=== PATIENT | male | born 1960 | race Caucasian/White ===

== ENCOUNTER 2016-10-28 17:52 | Emergency (ER) | payer BC ==
[~2016-10-28] VITALS: Ht 172.7 cm; Wt 74.5 kg
[~2016-10-28 17:52] MED LIST: ASPEC81 PO; CYAN100020 PO; INSUINJ14 SC; INSUINJ4 SQ; LISI-461 PO; METF1TAB85 PO; MULTTAB58 PO; OMEP20CA9 PO; SIMV10TA5 PO
[2016-10-28 17:56] VITALS: TEMP 36.5; Ht 172.7 cm; Wt 74.5 kg
[2016-10-28] MEDS ORDERED: ACETAMINOPHEN 325 MG TAB PO STA (18:08)
[2016-10-28] MEDS ORDERED: ASPI81TA28 PO (18:14)
[2016-10-28] MEDS ORDERED: NVLGI/PEN SC (18:14)
[2016-10-28] MEDS ORDERED: INSDGIPEN SC (18:14)
--- NOTE | 2016-10-28 18:14 | EMERGENCY ROOM VISIT NOTE ---
History First contact with patient: 18:03 Chief Complaint: SHOULDER PAIN Stated Complaint: R SHOULDER PAIN History of Present Illness The patient is a 56 year old male who presents to the Emergency Room via private vehicle with complaints of "right shoulder pain". The patient states that around 3 PM this evening, he was at home, tripped and fell striking his right shoulder on the ground. He is here concerned because he thinks his right shoulder may be dislocated. He rates the pain as a 6/10. His tetanus is up-to- date. He denies any loss of consciousness, chest pain, shortness of breath. Review of Systems A complete 6-point Review of Systems was discussed with the patient, with pertinent positives and negatives listed in the History of Present Illness. All remaining Review of Systems questions can be considered negative unless otherwise specified. Past Medical/Surgical History Diabetes. Family History No pertinent. Social History Smoking Status: Never Smoker Social History: Patient lives locally. Current/Historical Medications Scheduled Aspirin (Aspirin Ec), 81 MG PO DAILY Insulin Aspart (Novolog Flexpen), UNITS SC DIRECTED Insulin Glargine (Lantus Solostar), 22 UNITS SC DAILY Lisinopril (Zestril), 10 MG PO DAILY Metformin Hcl (Metformin Hcl Er), 750 MG PO TIDM Multiple Vitamin (Multivitamin), 1 TAB PO DAILY Omeprazole (Prilosec), 20 MG PO BID Simvastatin (Zocor), 10 MG PO QPM Allergies Coded Allergies: No Known Allergies (Verified , ., 02/11/13) Physical Exam Vital Signs Date Time Temp Pulse Resp B/P (MAP) Pulse Ox O2 Delivery O2 Flow Rate FiO2 10/28/16 19:24 86 18 126/82 96 10/28/16 17:56 36.5 99 18 133/89 94 Room Air Physical Exam VITAL SIGNS - Vital signs and nursing notes were reviewed. Afebrile, blood pressure 133/89, non-tachycardic and is saturating well on room air at 94%. GENERAL -56-year-old male appearing his stated age who is in no acute distress. Communicates well with provider and answers questions appropriately. SKIN - Without rashes. There are a few abrasions noted to the posterior aspect of the right shoulder. HEAD - NC/AT. NECK -no C-spine tenderness. LUNGS - Chest wall symmetric without accessory muscle use, intercostals retractions, or central cyanosis. Normal vesicular breath sounds CTA B/L. No wheezes, rales, or rhonchi appreciated. CARDIAC - RRR with S1/S2. No murmur, rubs, or gallops appreciated. EXTREMITIES - No clubbing or peripheral cyanosis. No pretibial edema present. There is obvious anterior deformity of the right shoulder, with clavicular elevation and inferior humeral head displacement. +5/5 strength noted in UE/LE bilaterally. He is neurovascularly intact in this region. Medical Decision & Procedures ER Provider Diagnostic Interpretation: RIGHT SHOULDER MIN 2 VIEWS ROUTINE CLINICAL HISTORY: Fall, right shoulder dislocation Right pain. Trauma. COMPARISON: None. DISCUSSION: Grade 1/2 separation right acromioclavicular joint. Glenohumeral joint is unremarkable. No evidence for fracture. There is no evidence for soft tissue swelling. IMPRESSION: Grade 1/grade 2 separation right acromioclavicular joint The above report was generated using voice recognition software. It may contain grammatical, syntax or spelling errors. Electronically signed by: Tanvir Delgado M.D. 10/28/2016 6:38 PM Dictated Date/Time: 10/28/2016 6:37 PM Medications Administered Medications (Trade) Dose Ordered Sig/Esme Route Start Time Stop Time Status Last Admin Dose Admin Acetaminophen (Tylenol Tab) 650 mg NOW STAT PO 10/28/16 18:08 10/28/16 18:09 DC 10/28/16 18:16 650 MG ED Course Seen and evaluated in room D 9. Radiographs and Tylenol were ordered. Patient was seen by my attending. AC joint separation noted. Sling was applied. Referred to orthopedics, discharged home in good condition. Medical Decision Patient was seen and evaluated as above. After obtaining a thorough history and physical examination radiographs were obtained, and he was given Tylenol for pain. He indicated he was driving, therefore was not given anything stronger for pain. He had no pain at rest. Radiographs reveal before AC joint separation. Case was discussed with my attending, who also personally evaluated the patient. At this time he will be immobilized with an arm sling, and referred to orthopedics. He is certainly to return with any new/concerning symptoms. He was neurovascularly intact in this region. He was educated upon worrisome symptoms which return, had questions about future, and was discharged home in good condition. In the evaluation and treatment of this patient, the following differential diagnoses were considered: Shoulder Contusion, Shoulder Fracture, Shoulder Dislocation, Thoracic Outlet Syndrome, Adhesive Capsulitis, Rotator Cuff Tear, Proximal Clavicle Head Fracture, Apical Pneumonia, Pneumothorax, Hemothorax, or TB. Impression Primary Impression: Acromioclavicular joint separation, type 2 Departure Information Dispostion Home / Self-Care Condition GOOD Referrals No Doctor, Assigned (PCP) Marcos Romero MD Patient Instructions My [facility] Additional Instructions You have been treated in the Emergency Department for Shoulder Pain. For pain control, you can use the following [id number] medicines (if >12 yo): - Regular strength (325mg/tab) Tylenol (acetaminophen) 2 tabs every 4-6 hours as needed. Do not exceed 12 tablets in a 24 hour period. Avoid taking more than 3 grams (3000 mg) of Tylenol per day. This includes any other sources of acetaminophen you may take on a regular basis. If this is a recent injury (<24 hrs), ice can be applied to the area of pain for the first 3 days to help decrease pain and inflammation. You have been provided the number for an Orthopaedic Surgeon. You should call this number as soon as possible to establish a follow-up visit from today's Emergency Department visit. Keep the shoulder brace/sling in place until evaluated by Orthopedics. Continue to perform range of motion exercises several times per day to help prevent the development of a "frozen shoulder". Return to the Emergency Department if your current symptoms worsen despite treatment course outlined above, or if you develop any of the following symptoms : intractable pain despite aforementioned treatment course or new onset of numbness or tingling of the arm. Please return to the emergency department with any new/concerning symptoms.
--- NOTE | 2016-10-28 18:32 | EMERGENCY ROOM VISIT NOTE ---
ED Visit Note First contact with patient: 18:03 This Patient was discussed with the physician Director Government, Christopher Foote PA-C. The pertinent historical and physical exam findings were confirmed. I agree with the studies ordered and with the interpretations of these studies. I agree with the disposition and care plan.
--- NOTE | 2016-10-28 18:39 | DIAGNOSTIC IMAGING REPORT ---
RIGHT SHOULDER MIN 2 VIEWS ROUTINE CLINICAL HISTORY: Fall, right shoulder dislocation Right pain. Trauma. COMPARISON: None. DISCUSSION: Grade 1/2 separation right acromioclavicular joint. Glenohumeral joint is unremarkable. No evidence for fracture. There is no evidence for soft tissue swelling. IMPRESSION: Grade 1/grade 2 separation right acromioclavicular joint The above report was generated using voice recognition software. It may contain grammatical, syntax or spelling errors. Electronically signed by: Tanvir Delgado M.D. 10/28/2016 6:38 PM Dictated Date/Time: 10/28/2016 6:37 PM
[2016-10-28 19:24] VITALS: BP 126/82; PULSE 86; O2SAT 96
== END 2016-10-28 19:25 | disposition home or self-care (01) ==
LOC: C.EDB 17:54 → C.EDD 19:25
DX: S43.101A Unspecified dislocation of right acromioclavicular joint, initial encounter (principal); W01.0XXA Fall on same level from slipping, tripping and stumbling without subsequent striking against object, initial encounter; E11.9 Type 2 diabetes mellitus without complications; Z79.4 Long term (current) use of insulin; Z79.82 Long term (current) use of aspirin; Z79.899 Other long term (current) drug therapy

== ENCOUNTER → 2016-11-09 | Outpatient (CLI) | payer BC ==
[~2016-11-09] MED LIST changes: -ASPEC81 PO; +ASPI81TA28 PO; -CYAN100020 PO; +INSDGIPEN SC; -INSUINJ14 SC; -INSUINJ4 SQ; +NVLGI/PEN SC
--- NOTE | 2016-11-09 08:03 | DIAGNOSTIC IMAGING REPORT ---
ORBITS FOR MRI HISTORY: Pre-MRI pre-MRI screening. COMPARISON: None. FINDINGS: There are no radiopaque foreign bodies identified within the orbits. IMPRESSION: No radiopaque foreign bodies identified within the orbits. The above report was generated using voice recognition software. It may contain grammatical, syntax or spelling errors. Electronically signed by: Tanvir Delgado M.D. 11/09/2016 8:01 AM Dictated Date/Time: 11/09/2016 8:01 AM
--- NOTE | 2016-11-09 09:05 | DIAGNOSTIC IMAGING REPORT ---
MRI THE RIGHT SHOULDER NO CONTRAST CLINICAL HISTORY: Right shoulder pain status post trauma COMPARISON STUDY: Conventional radiographic study dated 10/28/2016 FINDINGS: Imaging was performed in the sagittal Coronal and axial planes. The bicipital tendon appears normal. There is a right AC joint separation with disruption of the acromioclavicular and coracoclavicular ligaments. There is no evidence of rotator cuff tear. There is mild irregularity of the inferior glenoid labrum. This is not well evaluated on this nonarthrographic study. IMPRESSION: 1. Right AC joint separation with disruption of the chromic clavicular and coracoclavicular ligaments 2. No evidence of rotator cuff tear 3. No evidence of occult fracture Electronically signed by: Vickey Bella M.D. 11/09/2016 9:04 AM Dictated Date/Time: 11/09/2016 8:59 AM
== END | disposition home or self-care (01) ==
LOC: C.MRI 06:55
PROVIDERS: ATTEND Orthopaedic Surgery Sports Medicine
DX: S43.101A Unspecified dislocation of right acromioclavicular joint, initial encounter (principal); X58.XXXA Exposure to other specified factors, initial encounter

== ENCOUNTER → 2017-02-19 | Day surgery (SDC) | payer BC ==
[2017-02-11 08:11] VITALS: Ht 172.7 cm; Wt 72.7 kg
[~2017-02-19] VITALS: Ht 172.7 cm; Wt 72.7 kg
[~2017-02-19] MED LIST changes: +ATOR10TA82 PO; +CHOL2000 PO; +INSDGI SC; -INSDGIPEN SC; +LIDOCAINE HCL 2% 2 ML VIAL (20MG/ML) ONE; -METF1TAB85 PO; +METF750T PO; +MULT-506 PO; -MULTTAB58 PO; -OMEP20CA9 PO; +PRLSR20 PO; +PROPOFOL IV EMULSION 10 MG/ML 20 ML VIAL IV ONE; -SIMV10TA5 PO; +SODIUM CHLORIDE 0.9% 500ML 500 ML IV ONE
--- NOTE | 2017-02-19 11:25 | Endo History and Physical ---
History & Physical Date of Service: Feb 19, 2017. Chief Complaint: RECTAL BLEEDING Referring Physician: DR. PATRICIO CHOW History of Present Illness 57 yo CM who presents for colonoscopy secondary to rectal bleeding. Past Surgical History Hx Cardiac Surgery: No Hx Internal Defibrillator: No Hx Pacemaker: No Hx Abdominal Surgery: Yes (INGUINAL HERNIA REPAIR) Hx of Implantable Prosthesis: No Hx Post-Op Nausea and Vomiting: No Hx Cancer Surgery: No Hx Thoracic Surgery: No Hx Orthopedic: Yes (LUMBAR DISCECTOMY) Hx Urinary Tract Surgery: No Family History Colon CA, IBD Social History Smoking Status: Never Smoker Hx Substance Use: No Hx Alcohol Use: No Allergies Coded Allergies: No Known Allergies (Verified , ., 02/19/17) Current Medications Reported Home Medications Medications Dose Route/Sig Max Daily Dose Days Date Category Dose Instructions Prilosec (Omeprazole) 20 Mg Capcr 20 Mg PO QAM 02/11/17 Reported Vitamin D3 (Cholecalciferol) 2,000 Unit Cap 1 Cap PO QAM 02/11/17 Reported Multivitamin (Multivitamins) Tab 1 Tab PO QAM 02/11/17 Reported Glucophage Er (Metformin Hcl) 750 Mg Tab 750 Mg PO TID 02/11/17 Reported Zestril (Lisinopril) 10 Mg Tab 10 Mg PO QAM 02/11/17 Reported Lantus (Insulin Glargine) 100 Unit/Ml Inj 22 Units SC QAM 02/11/17 Reported Lipitor (Atorvastatin Calcium) 10 Mg Tab 10 Mg PO QAM 02/11/17 Reported Novolog Flexpen (Insulin Aspart) 100 Units/Ml Inj Units SC 5XD 10/28/16 Reported PER SLIDING SCALE Aspirin Ec (Aspirin) 81 Mg Tab 81 Mg PO QAM 10/28/16 Reported Vital Signs Weight (Kilograms): 72.73 Height (Feet): 5 Height (Inches): 8 Date Time Temp Pulse Resp B/P (MAP) Pulse Ox O2 Delivery O2 Flow Rate FiO2 02/19/17 11:13 37 85 18 134/80 (98) 96 Room Air Physical Exam General Appearance: WD/WN, no apparent distress Respiratory/Chest: Auscultation: breath sounds normal Cardiovascular: Heart Auscultation: RRR Abdomen: Bowel Sounds: normal Inspection & Palpation: soft, non-distended, no tenderness, guarding & rebound Assessment and Plan Assessment: 57 yo CM who presents for colonoscopy secondary to rectal bleeding. Plan: Proceed with colonoscopy.
--- NOTE | 2017-02-19 12:54 | GI REPORT ---
Procedure Date: 02/19/2017 12:28 PM Procedure: Colonoscopy Indications: Rectal bleeding Medicines: Monitored Anesthesia Care Complications: No immediate complications. Estimated Blood Loss: Estimated blood loss: none. Procedure: Pre-Anesthesia Assessment: - Prior to the procedure, a History and Physical was performed, and patient medications and allergies were reviewed. The patient's tolerance of previous anesthesia was also reviewed. The risks and benefits of the procedure and the sedation options and risks were discussed with the patient. All questions were answered, and informed consent was obtained. Prior Anticoagulants: The patient has taken aspirin, last dose was 4 days prior to procedure. ASA Grade Assessment: II - A patient with mild systemic disease. After reviewing the risks and benefits, the patient was deemed in satisfactory condition to undergo the procedure. After I obtained informed consent, the scope was passed under direct vision. Throughout the procedure, the patient's blood pressure, pulse, and oxygen saturations were monitored continuously. The scope was introduced through the anus and advanced to the terminal ileum. The colonoscopy was performed without difficulty. The patient tolerated the procedure well. The quality of the bowel preparation was good. The terminal ileum, ileocecal valve, appendiceal orifice, and rectum were photographed. Findings: The perianal and digital rectal examinations were normal. Non-bleeding internal hemorrhoids were found during retroflexion. The hemorrhoids were small. Impression: - Non-bleeding internal hemorrhoids. - No specimens collected. Recommendation: - Resume previous diet. - Continue present medications. - Repeat colonoscopy in 10 years for surveillance. - Return to primary care physician as previously scheduled. Thai Modi DO 02/19/2017 12:53:30 PM This report has been signed electronically. Note Initiated On: 02/19/2017 12:28 PM I attest to the content of the Intraoperative Record and orders documented therein, exceptions below
--- NOTE | 2017-02-19 13:08 | Anesthesiology Progress Note ---
Anesthesia Post Op Note Date & Time Feb 19, 2017 at 13:08 Vital Signs Pain Intensity: 0 Vital Signs Past 12 Hours Date Time Temp Pulse Resp B/P (MAP) Pulse Ox O2 Delivery O2 Flow Rate FiO2 02/19/17 12:49 75 16 124/68 (86) 98 Room Air 02/19/17 11:13 37 85 18 134/80 (98) 96 Room Air Notes Mental Status: alert / awake / arousable, participated in evaluation Pt Amnestic to Procedure: Yes Nausea / Vomiting: adequately controlled Pain: adequately controlled Airway Patency, RR, SpO2: stable & adequate BP & HR: stable & adequate Hydration State: stable & adequate Anesthetic Complications: no major complications apparent
[2017-02-19 13:19] VITALS: BP 139/88; PULSE 68; O2SAT 99
--- NOTE | 2017-02-19 13:24 | Discharge Instructions ---
Endoscopy Patient Instructions Date / Procedure(s) Performed Feb 19, 2017. Colonoscopy Allergy Information Coded Allergies: No Known Allergies (Verified , ., 02/19/17) Discharge Date / Findings Feb 19, 2017. Reflux esophagitis Hiatal hernia Gastric antrum biopsies Duodenal biopsies Medication Instructions Stopped Medication(s): METFORM LAST DOSE 02/15/17 ASPIRIN LAST DOSE 02/15/17 OK to resume all medications today as prescribed Reported Home Medications Medications Dose Route/Sig Max Daily Dose Days Date Category Dose Instructions Prilosec (Omeprazole) 20 Mg Capcr 20 Mg PO QAM 02/11/17 Reported Vitamin D3 (Cholecalciferol) 2,000 Unit Cap 1 Cap PO QAM 02/11/17 Reported Multivitamin (Multivitamins) Tab 1 Tab PO QAM 02/11/17 Reported Glucophage Er (Metformin Hcl) 750 Mg Tab 750 Mg PO TID 02/11/17 Reported Zestril (Lisinopril) 10 Mg Tab 10 Mg PO QAM 02/11/17 Reported Lantus (Insulin Glargine) 100 Unit/Ml Inj 22 Units SC QAM 02/11/17 Reported Lipitor (Atorvastatin Calcium) 10 Mg Tab 10 Mg PO QAM 02/11/17 Reported Novolog Flexpen (Insulin Aspart) 100 Units/Ml Inj Units SC 5XD 10/28/16 Reported PER SLIDING SCALE Aspirin Ec (Aspirin) 81 Mg Tab 81 Mg PO QAM 10/28/16 Reported Provider Instructions Activity Restrictions - No exercising or heavy lifting for 24 hours. - Do not drink alcohol the day of the procedure. - Do not drive a car or operate machinery until the day after the procedure. - Do not make any important decisions or sign important papers in 24 hours after the procedure. Following Day: - Return to full activity which may include returning to work/school. Diet Start your diet with liquids and light foods (jello, soup, juice, toast). Then eat your usual diet if not nauseated. Treatment For Common After Affects For mild abdominal pain, bloating, or excessive gas: - Rest - Eat lightly - Lie on right side Follow-Up Information Follow-up with DR. PATRICIO CHOW as scheduled Anesthesia Information What You Should Know You have had a procedure that required some medicine to reduce anxiety and discomfort. This treatment is called moderate sedation. After receiving the treatment, you may be sleepy, but you will be able to breathe on your own. The effects of the treatment may last for several hours. Follow these instructions along with Activity/Diet recommendations noted above: * Do NOT do anything where dizziness or clumsiness would be dangerous. * Rest quietly at home today, then you can be up and about tomorrow. * Have a responsible person stay with you the rest of today. * You may have had an I.V. today. If so, you may take the dressing off later today. Recommendations Call your doctor if: * Trouble breathing * Continuous vomiting for more than 24 hours * Temperature above 101 degrees * Severe abdominal pain or bloating * Pain not relieved by pain medicine ordered * There is increased drainage or redness from any incision * A large amount of rectal bleeding greater than 2-3 tablespoons. (If you had a polyp/s removed or have hemorrhoids, a small amount of blood - from the rectum is to be expected.) * You have any unanswered questions or concerns. IN THE EVENT OF A SERIOUS EMERGENCY, GO TO THE NEAREST EMERGENCY ROOM Your discharge instructions were prepared by provider Thai Modi. Patient Instructions Signature Page Kofi Gil Patient (or Guardian) Signature/Date: I have read and understand the instructions given to me by my caregivers. Caregiver/RN/Doctor Signature/Date: The above-named patient and/or guardian has received patient instructions on this date. + Original Patient Signature Page (only) stays with chart. Please make copy for patient.
== END | disposition home or self-care (01) ==
LOC: C.GI 10:37
PROVIDERS: ATTEND Internal Medicine
DX: K64.8 Other hemorrhoids (principal); Z80.0 Family history of malignant neoplasm of digestive organs; Z83.79 Family history of other diseases of the digestive system; Z79.4 Long term (current) use of insulin; Z79.899 Other long term (current) drug therapy; Z79.82 Long term (current) use of aspirin